=== PATIENT | female | born 1995 | race Two or more races ===

== ENCOUNTER 2024-08-06 13:54 | Emergency (ER) | payer SELFPAY ==
[~2024-08-06] VITALS: Ht 172.7 cm; Wt 100.0 kg
[2024-08-06 13:55] VITALS: O2SAT 99
[2024-08-06] MEDS: LEVETIRACETAM 500MG PREMIX 100 ML IV ONE (14:21)
[2024-08-06] MEDS: KETOROLAC 30MG/ML VIAL IV STA (14:22)
[2024-08-06] MEDS: SODIUM CHLORIDE 0.9% 1,000 ML IV ONE (14:22)
[2024-08-06 14:43] LABS: BASOPHILS % 0.4 % (0.0-2.0); EOSINOPHILS % 1.5 % (0.0-5.0); HEMATOCRIT. 39.3 % (36.0-48.0); HEMOGLOBIN. 12.9 g/dL (12.0-16.0); LYMPHOCYTES % 17.5 % (20.0-50.0); MEAN CORPUSCULAR HEMOGLOBIN 28.2 pg (28.0-32.0); MEAN CORPUSCULAR HGB CONC 32.7 g/dL (31.0-37.0); MEAN CORPUSCULAR VOLUME 86.3 fL (81.0-99.0); MONOCYTES % 6.3 % (2.0-8.0); NEUTROPHILS % 74.3 % (40.0-76.0); PLATELET 226 x1000/uL (130-400); RED BLOOD CELL COUNT 4.55 mill/uL (4.2-5.4); RED CELL DISTRIBUTION WIDTH 13.6 % (11.6-14.6); WHITE BLOOD COUNT 8.5 x1000/uL (4.5-11.0)
[2024-08-06 14:52] LABS: CARBON DIOXIDE 25 mEq/L (21-32); CHLORIDE 103 mEq/L (98-107); POTASSIUM 3.6 mEq/L (3.5-5.1); SODIUM 138 mEq/L (136-145)
[2024-08-06 14:53] LABS: CALCIUM 9.2 mg/dL (8.7-10.4)
[2024-08-06 14:57] LABS: CREATININE 0.7 mg/dL (0.6-1.0)
[2024-08-06 14:58] LABS: ETHANOL BLOOD < 10 mg/dL (<10); GLUCOSE 103 mg/dL (70-105); UREA NITROGEN BLOOD 10 mg/dL (9-23)
[2024-08-06 14:59] LABS: ALANINE AMINOTRANSFERASE 22 IU/L (10-49); ALBUMIN 4.3 g/dL (3.2-4.8); ASPARTATE AMINOTRANSFERASE 20 IU/L (<34)
[2024-08-06 15:00] LABS: BILIRUBIN DIRECT < 0.1 mg/dL (<=3.0); BILIRUBIN TOTAL 0.5 mg/dL (0.1-1.0); PROTEIN TOTAL 7.7 g/dL (6.0-8.3)
[2024-08-06 15:17] LABS: HCG SCREEN NEGATIVE
[2024-08-06 15:37] LABS: TROPONIN I HIGH SENSITIVITY < 4 ng/L (3.0-34)
[2024-08-06 17:00] VITALS: BP 136/64; PULSE 82; RESP 16; TEMP 37; O2SAT 98
== END 2024-08-06 17:09 | disposition home or self-care (01) ==
LOC: ER 13:54 → EDBEDREQ 16:20 → ER 17:09
DX: S00.03XA Contusion of scalp, initial encounter (principal); R56.9 Unspecified convulsions; X58.XXXA Exposure to other specified factors, initial encounter; Y93.89 Activity, other specified; Y92.89 Other specified places as the place of occurrence of the external cause; Y99.8 Other external cause status
CPT/HCPCS: 80076; 80048; 81025; 80320; 84703; 85025; 84484; 36415; 71045; 70450; 93005; 96365; 96375; 99285; J1953; J1885; J7030; Z7610; A4606; G0480